=== PATIENT | female | born 1970 | race Caucasian/White ===

== ENCOUNTER → 2016-09-16 | Outpatient (CLI) | payer BC ==
--- NOTE | 2016-09-16 11:30 | WWHP ---
DATE OF SERVICE: 09/16/2016 CHIEF COMPLAINT: The patient is here for her routine gynecologic exam and mammogram. HPI: This is a 45-year-old G0 with an LMP of 06/24/2016. The patient states her periods were regular up until about 2 years ago. She states they have been somewhat irregular during the 2 years and have been anywhere from 2 weeks to 2 months. She is now going on about 3 months since her LMP and this is the longest she has gone without a period. She states she does have some hot flashes mostly at night and this has been greater during the past month. She is otherwise without complaints. She considers herself a lesbian, although she has had some sexual activity with men in the past, but she has never had vaginal sexual intercourse. It has been about 5 years since her last pelvic exam and Pap smear. It has been more than 5 years since her last mammogram. PAST MEDICAL HISTORY: Hidradenitis suppurativa in the low back, buttock area. She denies any other health issues. Dr. Carlos is her primary care physician and Dr. Choe is her toolroom keeper. MEDICATIONS: Chantix 1 mg b.i.d. Allergies to NEOSPORIN which caused a rash. PAST SURGICAL HISTORY: Bunionectomy in the past. 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 She considers herself a lesbian but has had non-intercourse relations with men in the past. She has no history of STDs. SOCIAL HISTORY: She smokes about 6 cigarettes per day, but is trying to quit. She is has about 10 alcoholic drinks per year and denies drug use. 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 She is single and is not seeing anybody at this time. FAMILY HISTORY: Both parents had lung cancer. Father also had type 1 diabetes. REVIEW OF SYSTEMS: She has lost about 7 pounds over the last few months and this has been with increasing exercise. She is trying to lose weight. RESPIRATORY: She is getting over a cold. She denies cardiac or GI problems. PHYSICAL EXAM: Blood pressure 131/72. Height 5 feet 4 inches. Weight 188 pounds. Temperature 97.0, pulse 99. This a well-developed, well-nourished white female who is alert and oriented x3 in no acute distress. HEENT is within normal limits. NECK: Supple without mass or thyromegaly. CHEST AND LUNGS: Clear to auscultation. HEART: Regular rate and rhythm. Breasts, there is jeannine in the lower medial quadrant of the right breast which she states has not changed since . There are no palpable masses or tenderness. Axillary exam is negative for adenopathy. BACK: Negative for CVA tenderness. ABDOMEN: Soft, nontender, without palpable masses. PELVIC EXAM: Normal external genitalia. Cervix and vagina appear normal. There is no evidence of prolapse. The uterus is midposition, nongravid size and nontender. There are no palpable adnexal masses or tenderness. Rectal exam is negative for mass or tenderness and is negative for occult blood. EXTREMITIES: Nontender. IMPRESSION: A 45-year-old perimenopausal female with normal gynecologic exam. PLAN: 1. Pap smear was performed. 2. Self breast examination was discussed. 3. Mammogram will be done today. 4. The patient will keep a menstrual calendar and call if she is having menstrual problems. 5. Osteoporosis prevention was discussed. 6. She will return in one year.
--- NOTE | 2016-09-16 13:17 | MM ---
Reason for exam: screening (asymptomatic). Baseline mammogram. History: Patient is nulliparous. Family history of breast cancer in aunt. Physical Findings: Nurse did not find any significant physical abnormalities on exam. MG Screening Mammo w CAD Bilateral CC and MLO view(s) were taken. Prior study comparison: June 14, 1998, bilateral special view mammogram. There are scattered fibroglandular densities. Regional round and punctate calcifications in the medial right breast in a benign pattern. There is no discrete abnormality. These results were verbally communicated with the patient and result sheet given to the patient on 09/16/16. ASSESSMENT: Negative, BI-RAD 1 RECOMMENDATION: Routine screening mammogram of both breasts in 1 year.
== END ==
LOC: WWCWWP 09:42
PROVIDERS: ATTEND Obstetrics & Gynecology
DX: Z12.31 Encounter for screening mammogram for malignant neoplasm of breast (principal)

== ENCOUNTER → 2017-10-27 | Outpatient (CLI) | payer BC ==
[2017-10-27 09:10] VITALS: BP 146/77; PULSE 91; TEMP 97.3; BMI 31.4
--- NOTE | 2017-10-27 09:42 | P.HPOB ---
History of Present Illness H&P Date: 10/27/17 Chief Complaint: The patient is here for her routine gynecologic exam and mammogram. This is a 46-year-old G0 with an LMP of 02/21/2017. The patient states her menses have become infrequent and she has had 3 menses over the last year. She does have occasional night hot flashes but no significant hot flashes during the day. She is without complaints. Review of Systems The patient has gained 7 pounds over the last year. She denies respiratory, cardiac, or G.I. problems. 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 She has no history of STDs. History of Any Multi-Drug Resistant Organisms: None Reported Additional Past Surgical History / Comment(s): Bunionectomy. Past Psychological History: No Psychological Hx Reported Smoking Status: Current some day smoker (0 5 per day) Past Alcohol Use History: Rare (10 per year) Past Drug Use History: None Reported Additional History: She is single and is not seen anybody at this time. She works for [employer] and is planning to retire your in 2018. - Past Family History Father Family Medical History: Cancer (Long), Diabetes Mellitus (Type I diabetes) Mother Family Medical History: Cancer (Lung) Medications and Allergies Home Medications Medication Instructions Recorded Confirmed Type Atorvastatin [Lipitor] mg PO DAILY 10/27/17 History Allergies Allergy/AdvReac Type Severity Reaction Status Date / Time No Known Allergies Allergy Unverified 10/27/17 09:03 Exam - Vital Signs Vital signs: Vital Signs Temp Pulse BP 10/27/17 09:04 97.3 F L 91 146/77 Intake and Output 10/26/17 10/27/17 10/27/17 22:59 06:59 14:59 Other: Weight 88.451 kg Height 5'6", BMI 31.5. This is a well-developed well-nourished white female who is alert and oriented times 3 in no acute distress. HEENT: Within normal limits. NECK: Supple without mass or thyromegaly. CHEST AND LUNGS: Clear to auscultation. HEART: Regular rate and rhythm. BREASTS: Are without mass or discharge. There is a marian birthmark covering the majority of the medial aspect of the right breast which she states has not changed since . AXILLARY EXAM: Negative for adenopathy. BACK: Negative for CVA tenderness. ABDOMEN: Soft, nontender, without palpable masses. PELVIC EXAM: Normal external genitalia. Cervix and vagina appear normal. There is no unusual discharge. There is no evidence of prolapse. The uterus is midposition, nongravid size and nontender. There are no palpable adnexal masses or tenderness. RECTAL EXAM: negative for mass or tenderness and is negative for occult blood. EXTREMITIES: Nontender. IMPRESSION: 1. 46-year-old perimenopausal female with oligomenorrhea. 2. Normal gynecologic exam 3. Mild blood pressure elevation. PLAN: 1. Pap smear was deferred since she had a normal one last year 2. Self breast awareness was discussed. 3. Screening mammogram will be done today. 4. Her elevated blood pressure was discussed. I have recommended that she check her own blood pressure on a regular basis and follow up with her primary care physician for blood pressure elevations. She states she has an upcoming appointment with her primary care physician as well. 5. Osteoporosis prevention was discussed. 6. She will return in one year.
--- NOTE | 2017-10-28 08:22 | MM ---
Reason for exam: screening (asymptomatic). Last mammogram was performed 1 year and 1 month ago. History: Patient is nulliparous. Family history of breast cancer in aunt. Physical Findings: A clinical breast exam by your physician is recommended on an annual basis and results should be correlated with mammographic findings. MG Screening Mammo w CAD Bilateral CC and MLO view(s) were taken. Prior study comparison: September 16, 2016, bilateral MG screening mammo w CAD. June 14, 1998, bilateral special view mammogram. There are scattered fibroglandular densities. Benign appearing bilateral punctate calcifications. No suspicious abnormality. No significant changes when compared with prior studies. ASSESSMENT: Benign, BI-RAD 2 RECOMMENDATION: Routine screening mammogram of both breasts in 1 year.
== END | disposition home or self-care (01) ==
LOC: WWCWWP 08:32
PROVIDERS: ATTEND Obstetrics & Gynecology
DX: Z12.31 Encounter for screening mammogram for malignant neoplasm of breast (principal)
CPT/HCPCS: 77067

== ENCOUNTER → 2018-12-14 | Outpatient (CLI) | payer BC ==
[2018-12-14 09:25] VITALS: BP 129/83; PULSE 76; RESP 16; TEMP 98.9; BMI 33.3
--- NOTE | 2018-12-14 10:15 | P.HPOB ---
History of Present Illness H&P Date: 12/14/18 Chief Complaint: The patient is here for her routine gynecologic exam and ma mmogram. This is a 48 year old G 0 P 0 with an LMP of 04/19/2018. The patient states her menstrual periods continue to space out and have been doing so over the past 2 years. She believes she had two menstrual periods last year. She does experience some hot flashes mostly at night. Hot flashes are not very bothersome. She has also been noticing occasional small urinary leakage immediately after voiding. She denies leakage at other times. She denies urge incontinence. Review of Systems The patient's weight has been stable over the last year. She denies respir atory, cardiac, or G.I. problems. Past Medical History Past Medical History: Hyperlipidemia, Thyroid Disorder Additional Past Medical History / Comment(s): Hypothyroidism. 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 She has no history of STDs. History of Any Multi-Drug Resistant Organisms: None Reported Additional Past Surgical History / Comment(s): Bunionectomy. Past Psychological History: No Psychological Hx Reported Smoking Status: Current some day smoker (She was smoking 5 per day. She is trying to quit(12/14/18)) Past Alcohol Use History: Rare (10 per year) Past Drug Use History: None Reported Additional History: She is single and is not seeing anybody at this time. She is homosexual. She retired in 2018. - Past Family History Father Family Medical History: Cancer, Diabetes Mellitus Additional Family Medical History / Comment(s): Lung cancer. Type I diabetes. Mother Family Medical History: Cancer Additional Family Medical History / Comment(s): Lung cancer. Medications and Allergies Home Medications Medication Instructions Recorded Confirmed Type Atorvastatin [Lipitor] 20 mg PO DAILY 10/27/17 12/14/18 History Levothyroxine Sodium [Synthroid] 50 mcg PO DAILY 12/14/18 12/14/18 History Allergies Allergy/AdvReac Type Severity Reaction Status Date / Time No Known Allergies Allergy Unverified 12/14/18 09:26 Exam Vital Signs Temp Pulse Resp BP Pulse Ox 12/14/18 09:19 98.9 F 76 16 129/83 98 Intake and Output 12/13/18 12/14/18 12/14/18 22:59 06:59 14:59 Other: Weight 87.997 kg Height 5'4", weight 194 pounds, BMI 33.3. This is a well-developed well-nourished white female who is alert and oriented times 3 in no acute distress. HEENT: Within normal limits. NECK: Supple without mass or thyromegaly. CHEST AND LUNGS: Clear to auscultation. HEART: Regular rate and rhythm. BREASTS: Are without mass or discharge. AXILLARY EXAM: Negative for adenopathy. BACK: Negative for CVA tenderness. ABDOMEN: Soft, nontender, without palpable masses. PELVIC EXAM: Normal external genitalia. Cervix and vagina appear normal. There is no unusual discharge. There is no evidence of prolapse. The uterus is midposition, nongravid size and nontender. There is minimal urethral mobility with cough and Valsalva. No urinary leakage was demonstrated. There are no palpable adnexal masses or tenderness. RECTAL EXAM: rectovaginal exam is negative for mass or tenderness and is negative for occult blood. EXTREMITIES: Nontender. IMPRESSION: 1. 48 year old perimenopausal female with oligomenorrhea and mild vasomotor symptoms. 2. Normal gynecologic exam. 3. Occasional post void urinary leakage. PLAN: 1. Pap smear was performed. 2. Self breast awareness was discussed with the patient. 3. Screening mammogram will be done today. 4. Osteoporosis prevention was discussed. I have stressed the importance of adequate calcium, vitamin D and regular exercise. Recommended amounts of calcium and vitamin D were also discussed. 5. I have recommended screening colonoscopy based on her age. She states she will discuss this with Dr. Rosales to see if it could be arranged through his office. 6. We discussed her intermittent urinary leakage problems which is noticed after voiding. We discussed ways of trying to more completely empty her bladder with relaxation and giving herself enough time when she voids. I also recommended that she tried to [place] contract muscles immediately after voiding several times to try to remove urine between the sphincter muscle and the urinary opening. 7. She was advised to return in one year for her annual well woman exam. She will also return PRN.
--- NOTE | 2018-12-15 13:48 | MM ---
Reason for exam: screening (asymptomatic). Last mammogram was performed 1 year and 2 months ago. History: Patient is nulliparous. Family history of breast cancer in aunt. Physical Findings: A clinical breast exam by your physician is recommended on an annual basis and results should be correlated with mammographic findings. MG Screening Mammo w CAD Bilateral CC and MLO view(s) were taken. Prior study comparison: October 27, 2017, bilateral MG screening mammo w CAD. September 16, 2016, bilateral MG screening mammo w CAD. The breast tissue is heterogeneously dense. This may lower the sensitivity of mammography. No suspicious abnormality. No significant changes when compared with prior studies. ASSESSMENT: Negative, BI-RAD 1 RECOMMENDATION: Routine screening mammogram of both breasts in 1 year.
== END ==
LOC: WWCWWP 09:10
PROVIDERS: ATTEND Obstetrics & Gynecology
DX: Z12.31 Encounter for screening mammogram for malignant neoplasm of breast (principal)
CPT/HCPCS: 77067

== ENCOUNTER → 2020-01-02 | Outpatient (CLI) | payer BC ==
[2020-01-02 08:03] VITALS: BP 129/84; PULSE 80; RESP 18; TEMP 98.3
--- NOTE | 2020-01-02 08:37 | P.HPOB ---
History of Present Illness H&P Date: 01/02/20 Chief Complaint: The patient is here for her routine gynecologic exam and ma mmogram. This is a 49-year-old G0 with an LMP of 2018. The patient is without gynecologic complaints and denies any postmenopausal bleeding. The patient has occasional mild hot flashes mostly in the evening and night and these are not very bothersome. Review of Systems The patient has lost 29 pounds over the last year. She has done this with dietary changes and has been recording her food intake. She thinks it also may have been related to an adjustment in her thyroid medication. She denies respiratory, cardiac, or G.I. problems. Past Medical History Past Medical History: Hyperlipidemia, Thyroid Disorder Additional Past Medical History / Comment(s): Hypothyroidism. 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 She has no history of STDs. History of Any Multi-Drug Resistant Organisms: None Reported Additional Past Surgical History / Comment(s): Bunionectomy. Benign skin lesions removed from face. Past Psychological History: No Psychological Hx Reported Smoking Status: Current every day smoker (5 cigarettes per day) Past Alcohol Use History: Rare (10 per year) Past Drug Use History: None Reported Additional History: She is single and is not seeing anybody at this time. She is homosexual. She retired in 2018. - Past Family History Father Family Medical History: Cancer, Diabetes Mellitus Additional Family Medical History / Comment(s): Lung cancer. Type I diabetes. Mother Family Medical History: Cancer Additional Family Medical History / Comment(s): Lung cancer. Medications and Allergies Home Medications Medication Instructions Recorded Confirmed Type Atorvastatin [Lipitor] 20 mg PO HS 10/27/17 01/02/20 History Levothyroxine Sodium [Synthroid] 50 mcg PO DAILY 12/14/18 01/02/20 History Multivitamin [Multivitamins Adult 1 each PO DAILY 01/02/20 01/02/20 History Gummies] Allergies Allergy/AdvReac Type Severity Reaction Status Date / Time bacitracin Allergy Rash/Hives Unverified 01/02/20 07:55 [From Neosporin ([id number])] neomycin Allergy Rash/Hives Unverified 01/02/20 07:55 [From Neosporin ([id number])] polymyxin B Allergy Rash/Hives Unverified 01/02/20 07:55 [From Neosporin ([id number])] Exam Vital Signs Temp Pulse Resp BP Pulse Ox 01/02/20 07:57 98.3 F 80 18 129/84 100 Intake and Output 01/01/20 01/02/20 01/02/20 22:59 06:59 14:59 Other: Weight 74.843 kg Height 5 feet 4-1/2 inches, weight 165 pounds, BMI 27.9. This is a well-developed well-nourished white female who is alert and oriented times 3 in no acute distress. HEENT: Within normal limits. NECK: Supple without mass or thyromegaly. CHEST AND LUNGS: Clear to auscultation. HEART: Regular rate and rhythm. BREASTS: Are without mass or discharge. There is a benign appearing mole on the left areola measuring 4 x 4 mm. She states it has been there for several years. There is a fairly diffuse birthmark on the right breast which the patient states has not changed. AXILLARY EXAM: Negative for adenopathy. BACK: Negative for CVA tenderness. ABDOMEN: Soft, nontender, without palpable masses. PELVIC EXAM: External genitalia has multiple benign-appearing inclusion cysts ranging from 4 mm to 8 mm in size. The patient states she has had these for many years. There is also some scarred areas, possibly from old opened inclusion cysts. Cervix and vagina appear normal. There is no unusual discharge. There is no evidence of prolapse. The uterus is midposition, nongravid size and nontender. There are no palpable adnexal masses or tenderness. RECTAL EXAM: Rectovaginal exam is negative for mass or tenderness and is negative for occult blood. EXTREMITIES: Nontender. IMPRESSION: 1. 49-year-old menopausal female with multiple benign vulvar inclusion cysts and otherwise unremarkable gynecologic exam. 2. Very mild vasomotor symptoms secondary to the menopausal change. PLAN: 1. Pap smear was deferred since she had a normal one on 12/14/2018. 2. Self breast awareness was discussed with the patient. 3. Screening mammogram will be done today. 4. Osteoporosis prevention was discussed. I have stressed the importance of adequate calcium, vitamin D and regular exercise. Recommended amounts of calcium and vitamin D were also discussed. 5. I have recommended that she quit smoking. She understands her many reasons why she should do this. 6. I have recommended screening colonoscopy based on her age. We also discussed the option of Cologard testing. She will discuss these options with Dr. Rosales. 7. She was advised to return in one year for her annual well woman exam.
--- NOTE | 2020-01-02 09:29 | MM ---
Reason for exam: screening (asymptomatic). Last mammogram was performed 1 year and 1 month ago. History: Patient is postmenopausal and is nulliparous. Family history of breast cancer in aunt. Physical Findings: A clinical breast exam by your physician is recommended on an annual basis and results should be correlated with mammographic findings. MG Screening Mammo w CAD Bilateral CC and MLO view(s) were taken. Prior study comparison: December 14, 2018, bilateral MG screening mammo w CAD. October 27, 2017, bilateral MG screening mammo w CAD. The breast tissue is heterogeneously dense. This may lower the sensitivity of mammography. There are benign appearing round, regional and scattered calcifications in the right breast. There is no discrete abnormality. ASSESSMENT: Benign, BI-RAD 2 RECOMMENDATION: Routine screening mammogram of both breasts in 1 year.
== END | disposition home or self-care (01) ==
LOC: WWCWWP 07:42
PROVIDERS: ATTEND Obstetrics & Gynecology
DX: Z12.31 Encounter for screening mammogram for malignant neoplasm of breast (principal)
CPT/HCPCS: 77067

== ENCOUNTER → 2021-01-21 | Outpatient (CLI) | payer BC ==
[2021-01-21 08:09] VITALS: BP 123/80; PULSE 84; RESP 16; TEMP 98
--- NOTE | 2021-01-21 08:48 | P.HPOB ---
History of Present Illness H&P Date: 01/21/21 Chief Complaint: The patient is here for her routine gynecologic exam and ma mmogram. This is a 50-year-old G0 with an LMP of 2018. The patient is without gynecologic complaints and denies any post menopausal bleeding. Review of Systems The patient has gained 5 pounds over the last year. She denies respiratory, cardiac, or G.I. problems. Past Medical History Past Medical History: Hyperlipidemia, Thyroid Disorder Additional Past Medical History / Comment(s): Hypothyroidism. 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 She has no history of STDs. History of Any Multi-Drug Resistant Organisms: None Reported Additional Past Surgical History / Comment(s): Bunionectomy. Benign skin lesions removed from face. Past Psychological History: No Psychological Hx Reported Smoking Status: Current every day smoker (5-7 cigarettes per day) Past Alcohol Use History: Rare (6 per year) Past Drug Use History: None Reported Additional History: She is single and is not seeing anybody at this time. She is homosexual. She retired in 2018 and previously worked for the [employer]. - Past Family History Father Family Medical History: Cancer, Diabetes Mellitus Additional Family Medical History / Comment(s): Lung cancer. Type I diabetes. Mother Family Medical History: Cancer Additional Family Medical History / Comment(s): Lung cancer. Medications and Allergies Home Medications Medication Instructions Recorded Confirmed Type Atorvastatin [Lipitor] 20 mg PO HS 10/27/17 01/21/21 History Levothyroxine Sodium [Synthroid] 50 mcg PO DAILY 12/14/18 01/21/21 History Multivitamin [Multivitamins Adult 1 each PO DAILY 01/02/20 01/21/21 History Gummies] Allergies Allergy/AdvReac Type Severity Reaction Status Date / Time bacitracin Allergy Rash/Hives Unverified 01/21/21 07:59 [From Neosporin ([id number])] neomycin Allergy Rash/Hives Unverified 01/21/21 07:59 [From Neosporin ([id number])] polymyxin B Allergy Rash/Hives Unverified 01/21/21 07:59 [From Neosporin ([id number])] Exam Vital Signs Temp Pulse Resp BP Pulse Ox 01/21/21 08:00 98.0 F 84 16 123/80 100 Intake and Output 01/20/21 01/21/21 01/21/21 22:59 06:59 14:59 Other: Weight 77.111 kg Height 5 feet 4-1/2 inches, weight 170 pounds, BMI 28.7. This is a well-developed well-nourished white female who is alert and oriented times 3 in no acute distress. HEENT: Within normal limits. NECK: Supple without mass or thyromegaly. CHEST AND LUNGS: Clear to auscultation. HEART: Regular rate and rhythm. BREASTS: Are without mass or discharge. There is a benign-appearing mole on the left areola measuring approximately 7 mm. She states this is followed by her television installer helper. AXILLARY EXAM: Negative for adenopathy. BACK: Negative for CVA tenderness. ABDOMEN: Soft, nontender, without palpable masses. There is a mole measuring approximately 9 mm in the epigastric region of her abdomen which is dark with slightly irregular borders. She states this is followed regularly by her television installer helper. PELVIC EXAM: External genitalia reveals 3 benign-appearing inclusion cysts each measuring approximately 8 mm. Each is oval-shaped and nontender without ulceration. The vulva has mild atrophy with areas of scarring. These findings are stable from her previous exam. She states she has had the inclusion cyst for many years. Cervix and vagina appear normal with mild atrophy. There is no unusual discharge. There is no evidence of prolapse. The uterus is midposition, nongravid size and nontender. There are no palpable adnexal masses or tenderness. RECTAL EXAM: Rectovaginal exam is negative for mass or tenderness and is negative for occult blood. EXTREMITIES: Nontender. IMPRESSION: 1. 50-year-old menopausal female with multiple stable benign-appearing vulvar inclusion cysts. Otherwise unremarkable gynecologic exam. PLAN: 1. Pap smear cotest was performed. 2. Self breast awareness was discussed with the patient. We have also discussed symptoms associated with inflammatory breast cancer. 3. Screening mammogram will be done today. 4. Osteoporosis prevention was discussed. I have stressed the importance of adequate calcium, vitamin D and regular exercise. Recommended amounts of calci um and vitamin D were also discussed. 5. I have recommended that she try to quit smoking. She states she has done this in the past. We have discussed many reasons why this is important. 6. She has done Cologuard testing through her PCP earlier this year. 7. She was advised to return in one year for her annual well woman exam.
--- NOTE | 2021-01-22 09:14 | MM ---
Reason for exam: screening (asymptomatic). Last mammogram was performed 1 year and 1 month ago. History: Patient is postmenopausal and is nulliparous. Family history of breast cancer in paternal aunt. Physical Findings: A clinical breast exam by your physician is recommended on an annual basis and results should be correlated with mammographic findings. MG Screening Mammo w CAD Bilateral CC and MLO view(s) were taken. Prior study comparison: January 02, 2020, bilateral MG screening mammo w CAD. December 14, 2018, bilateral MG screening mammo w CAD. The breast tissue is heterogeneously dense. This may lower the sensitivity of mammography. Stable benign calcifications. There is no discrete abnormality. No significant changes when compared with prior studies. ASSESSMENT: Benign, BI-RAD 2 RECOMMENDATION: Routine screening mammogram of both breasts in 1 year.
== END | disposition home or self-care (01) ==
LOC: WWCWWP 07:51
PROVIDERS: ATTEND Obstetrics & Gynecology
DX: Z12.31 Encounter for screening mammogram for malignant neoplasm of breast (principal); Z80.3 Family history of malignant neoplasm of breast
CPT/HCPCS: 77067

== ENCOUNTER → 2022-02-10 | Outpatient (CLI) | payer BC ==
[2022-02-10 13:31] VITALS: BP 138/82; PULSE 82; RESP 17; TEMP 97.9
--- NOTE | 2022-02-10 14:09 | P.HPOB ---
History of Present Illness H&P Date: 02/10/22 Chief Complaint: The patient is here for her routine gynecologic exam and ma mmogram. This is a 51-year-old G0 with an LMP of 2018. The patient is without gynecologic complaints and denies any postmenopausal bleeding. Review of Systems The patient has gained 2 pounds over the last year. She denies respiratory, cardiac, or G.I. problems. Past Medical History Past Medical History: Hyperlipidemia, Thyroid Disorder Additional Past Medical History / Comment(s): Hypothyroidism. 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 She has no history of STDs. History of Any Multi-Drug Resistant Organisms: None Reported Additional Past Surgical History / Comment(s): Bunionectomy. Benign skin lesions removed from face. Past Psychological History: No Psychological Hx Reported Smoking Status: Current every day smoker (6 cigarettes per day) Past Alcohol Use History: Rare (0 to one per month) Past Drug Use History: None Reported Additional History: She is single and is not seeing anybody at this time. She is homosexual. She retired in 2018 and previously worked for the [employer]. - Past Family History Father Family Medical History: Cancer, Diabetes Mellitus Additional Family Medical History / Comment(s): Lung cancer. Type I diabetes. Mother Family Medical History: Cancer Additional Family Medical History / Comment(s): Lung cancer. Medications and Allergies Home Medications Medication Instructions Recorded Confirmed Type Atorvastatin [Lipitor] 20 mg PO HS 10/27/17 02/10/22 History Levothyroxine Sodium [Synthroid] 50 mcg PO DAILY 12/14/18 02/10/22 History Multivitamin [Multivitamins Adult 1 each PO DAILY 01/02/20 02/10/22 History Gummies] Allergies Allergy/AdvReac Type Severity Reaction Status Date / Time bacitracin Allergy Rash/Hives Unverified 02/10/22 13:17 [From Neosporin ([id number])] neomycin Allergy Rash/Hives Unverified 02/10/22 13:17 [From Neosporin ([id number])] polymyxin B Allergy Rash/Hives Unverified 02/10/22 13:17 [From Neosporin ([id number])] Exam Vital Signs Temp Pulse Resp BP Pulse Ox 02/10/22 13:18 97.9 F 82 17 138/82 100 Intake and Output 02/09/22 02/10/22 02/10/22 22:59 06:59 14:59 Other: Weight 78.018 kg Height 5 feet 4 inches, weight 172 pounds, BMI 29.5. This is a well-developed well-nourished white female who is alert and oriented times 3 in no acute distress. HEENT: Within normal limits. NECK: Supple without mass or thyromegaly. CHEST AND LUNGS: Clear to auscultation. HEART: Regular rate and rhythm. BREASTS: Are without mass or discharge. There is a birthmark covering approximately one third of the right breast and extends to the epigastric region. The patient states this is unchanged. There is a benign-appearing mole on the lateral aspect of the left areola and measures 7 mm. This is unchanged from her previous exam. AXILLARY EXAM: Negative for adenopathy. BACK: Negative for CVA tenderness. ABDOMEN: Soft, nontender, without palpable masses. There is a dark mole in the epigastric region measuring 8 mm. There is no significant change since her last exam. PELVIC EXAM: External genitalia reveals mild atrophy with 3 inclusion cysts. Each of the inclusion cyst is less than 1 cm and is not erythematous and nontender. There is 1 inclusion cyst in the left labia and 2 in the anterior aspect of the labia majora. The patient has had these for many years. Cervix and vagina appear normal with mild atrophy. There is no unusual discharge. There is no evidence of prolapse. The uterus is midposition, nongravid size and nontender. There are no palpable adnexal masses or tenderness. RECTAL EXAM: Rectovaginal exam is negative for mass or tenderness and is negative for occult blood. EXTREMITIES: Nontender. IMPRESSION: 1. 51-year-old menopausal female with normal gynecologic exam. 2. Multiple benign appearing vulvar inclusion cysts which are stable and nontender. PLAN: 1. Pap smear was deferred since she had a negative Pap smear, test on 01/21/2021. 2. Self breast awareness was discussed with the patient. We have also discussed symptoms associated with inflammatory breast cancer. 3. Screening mammogram will be done today. 4. Osteoporosis prevention was discussed. I have stressed the importance of adequate calcium, vitamin D and regular exercise. Recommended amounts of calcium and vitamin D were also discussed. 5. Cologuard testing was done for colorectal cancer screening in 2020 and was normal per the patient. 6. She has completed her Covid vaccination series and did receive one booster. She is planning on getting her second booster in the near future. 7. 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 8. She was advised to return in one year for her annual well woman exam.
== END | disposition home or self-care (01) ==
LOC: WWCWWP 13:12
PROVIDERS: ATTEND Obstetrics & Gynecology
DX: Z12.31 Encounter for screening mammogram for malignant neoplasm of breast (principal)
CPT/HCPCS: 77067

== ENCOUNTER → 2023-11-05 | Outpatient (CLI) | payer BC ==
--- NOTE | 2023-11-05 13:36 | MM ---
Reason for Exam: Clinical finding. Last screening mammogram was performed 8 month(s) ago. Patient History: Menarche at age 10. Patient has no children. Postmenopausal. Paternal aunt had breast cancer, age 55. Risk Values: Lacy 5 year model risk: 1.3%. NCI Lifetime model risk: 9.3%. Prior Study Comparison: 09/16/2016 Bilateral Screening Mammogram, [facility]. 10/27/2017 Bilateral Screening Mammogram, [facility]. 12/14/2018 Bilateral Screening Mammogram, [facility]. 02/10/2022 Bilateral MG screening mammo w CAD, [facility]. 02/16/2023 Bilateral MG screening mammo w CAD, [facility]. Tissue Density: There are scattered areas of fibroglandular density. Findings: Analyzed By CAD. The pattern is symmetrical. No significant interval changes are evident. Scattered benign punctate calcifications within the right breast. No suspicious groups of microcalcifications, spiculated or lobular masses, architectural distortion or other secondary signs of malignancy are mammographically apparent. Overall Assessment: Benign, BI-RAD 2 Management: Diagnostic Mammogram of both breasts in 4 months. A negative mammogram report should not preclude additional follow up of suspicious palpable abnormalities. Patient should continue monthly self breast exam. A clinical breast exam by your physician is recommended on an annual basis and results should be correlated with mammographic findings. Note on Lacy scores and lifetime risk: 1. A Lacy score greater than 3% is considered moderate risk. If this is the case, consider specialist referral to assess eligibility for a risk reducing agent. 2. If overall lifetime risk for the development of breast cancer is 20% or higher, the patient may qualify for future screening with alternating mammogram and breast MRI. Electronically signed and approved by: Brett Mcneil D.O. Radiologis
== END | disposition home or self-care (01) ==
LOC: RADMAMWWP 13:04
PROVIDERS: ATTEND Internal Medicine
DX: R92.323 Mammographic fibroglandular density, bilateral breasts (principal); N64.4 Mastodynia; Z78.0 Asymptomatic menopausal state; Z80.3 Family history of malignant neoplasm of breast
CPT/HCPCS: 77062; 77066

== ENCOUNTER → 2024-11-15 | Outpatient (CLI) | payer BC ==
--- NOTE | 2024-11-15 15:39 | MM ---
Reason for Exam: Screening (asymptomatic). Last mammogram was performed 1 year(s) and 1 month(s) ago. Patient History: Menarche at age 10. Patient has no children. Postmenopausal. Paternal aunt had breast cancer, age 55. Risk Values: Lacy 5 year model risk: 1.3%. NCI Lifetime model risk: 9.1%. Prior Study Comparison: 10/27/2017 Bilateral Screening Mammogram, [facility]. 12/14/2018 Bilateral Screening Mammogram, [facility]. 01/02/2020 Bilateral Screening Mammogram, [facility]. 01/21/2021 Bilateral Screening Mammogram, [facility]. 02/10/2022 Bilateral MG screening mammo w CAD, [facility]. 02/16/2023 Bilateral MG screening mammo w CAD, [facility]. 11/05/2023 Bilateral MG 3D diag mammo w/cad [facility], [facility]. Tissue Density: There are scattered areas of fibroglandular density. Findings: Analyzed By CAD. There is no suspicious group of microcalcifications or new suspicious mass in either breast. Overall Assessment: Negative, BI-RAD 1 Management: Screening Mammogram of both breasts in 1 year. Patient should continue monthly self-breast exams. A clinical breast exam by your physician is recommended on an annual basis. This exam should not preclude additional follow-up of suspicious palpable abnormalities. Note on Lacy scores and lifetime risk: 1. A Lacy score greater than 3% is considered moderate risk. If this is the case, consider specialist referral to assess eligibility for a risk reducing agent. 2. If overall lifetime risk for the development of breast cancer is 20% or higher, the patient may qualify for future screening with alternating mammogram and breast MRI. [facility], , 11/15/2024 3:36 PM. Electronically signed and approved by: Dejon Morrison M.D. Radiologist
== END | disposition home or self-care (01) ==
LOC: RADMAMWWP 13:35
PROVIDERS: ATTEND Internal Medicine
DX: Z12.31 Encounter for screening mammogram for malignant neoplasm of breast (principal); R92.323 Mammographic fibroglandular density, bilateral breasts; Z78.0 Asymptomatic menopausal state; Z80.3 Family history of malignant neoplasm of breast
CPT/HCPCS: 77063; 77067